=== PATIENT | female | born 1945 | race Caucasian/White ===

== ENCOUNTER 2017-10-22 16:49 | Observation (INO) | payer OTHER, MEDICARE ==
[~2017-10-22] VITALS: Ht 160 cm; Wt 61.2 kg
--- NOTE | 2017-10-22 17:20 | CT SCAN REPORT ---
EXAMINATION: CT HEAD WITHOUT CONTRAST CLINICAL INFORMATION: Left-sided facial droop. COMPARISON: None TECHNIQUE: Contiguous axial imaging was performed from the skull base to vertex without intravenous administration of contrast. FINDINGS: There is no intracranial hemorrhage, hydrocephalus, extra-axial surface collection, midline shift, or other herniation pattern. Landaverde to white matter differentiation is diffusely maintained without evidence of an evolved acute territorial infarct. The basilar cisterns are preserved. No significant soft tissue abnormality. No acute osseous abnormality. The paranasal sinuses and the mastoid air cells are well-aerated. IMPRESSION: No acute intracranial abnormality. Stroke protocol head CT results were discussed with Dr. Ferreira at 5:14 PM on 10/22/2017.
--- NOTE | 2017-10-22 17:27 | ED NEURO DEFICIT/STROKE ---
History of Present Illness General Chief Complaint: Neuro Symptoms/ Deficit Stated Complaint: ? NEURO ISSUES Source: patient Exam Limitations: no limitations Vital Signs & Intake/Output Vital Signs & Intake/Output Vital Signs Date Time Temp Pulse Resp B/P B/P Pulse O2 O2 Flow FiO2 Mean Ox Delivery Rate 10/22 2211 97.6 67 16 138/63 94 Room Air 10/22 2106 98.4 74 18 155/73 97 Room Air Room Air 10/22 1944 98.6 70 18 175/78 96 Room Air Room Air 10/22 1919 70 18 203/81 96 Room Air Room Air 10/22 1809 98.5 75 18 178/76 97 Room Air Room Air 10/22 1653 98.4 76 18 174/75 98 Room Air Allergies Coded Allergies: hydrocodone (From VICODIN) (Mild, ITCHING 10/22/17) azithromycin (RESP. DISTRESS 10/22/17) guaifenesin (RESP. DISTRESS 10/22/17) Reconcile Medications Calcium Carbonate/Vitamin D3 (Caltrate 600 + D Tablet) 600 MG-800 TABLET 1 TAB PO DAILY VITAMIN SUPPORT (Reported) Fish Oil/Borage/Flax/Om3,6,9#1 ([place]astings 3-6-9 1,200 MG Softgel) 1,200 MG CAPSULE 1 CAP PO DAILY VITAMIN SUPPORT (Reported) Fluticasone-Salmeterol (Advair 100-50 Diskus) 100 MCG-50 MCG/DOSE BLST.W.DEV 1 PUF INH BID ASTHMA (Reported) Hydrochlorothiazide 25 MG TABLET 1 TAB PO DAILY HIGH BLOOD PRESSURE (Reported ) Levothyroxine Sodium 50 MCG TABLET 1 TAB PO DAILY THYROID HEALTH (Reported) Losartan Potassium (Cozaar) 50 MG TABLET 1 TAB PO BID HIGH BLOOD PRESSURE ( Reported) Multiple Vitamin (Multivitamins) 1 EACH TABLET 1 TAB PO DAILY VITAMIN SUPPORT (Reported) Pravastatin Sodium (Pravachol) 40 MG TABLET 1 TAB PO DAILY HIGH CHOLESTROL ( Reported) Triage Note: 72 YO FEMALE TO TRIAGE FOR EVAL OF APPROX 45 MIN 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 PT STATES T THE TIME SHE HAD NUMBESS TO 2 FINGERS ON THE L HAND. PT ARRIVES TO TRIAGE A&O X3. ALL S/S HAVE RESOLVED AT THIS TIME. NEUROS INTACT. HECTOR FLANNERY AWARE AND PA IN FOR EVAL. PT RIGHT TO CT SCAN. Triage Nurses Notes Reviewed? yes Onset: Abrupt Duration: hour(s): (1), better, gone now, resolved prior to arrival Timing: single episode today Severity: moderate, severe New Weakness: left facial Altered Sensations: LUE, left facial Vision Problem? No Glaucoma? No Baseline: alert, oriented x 3, walks w/o assistance Associated Symptoms: numbness in legs/feet, slurred speech LMP (ages 10-50): post menopausal, unknown : No Patient currently breastfeeds: No HPI: 72 -year-old female with a history of hypertension and lipidemia as well as breast cancer presents for evaluation of possible TIA. Patient reports approximately one hour ago at the time of evaluation she developed acute onset of a left-sided facial droop and left-sided facial numbness and numbness in her left second and third digit and slurred speech. She was feeling fine before this. As witnessed by a friend. Symptoms lasted for approximately 5 minutes then resolved completely. She had no weakness of her extremities no changes in her vision no chest pain shortness of breath dizziness lightheadedness or headache. She's never had this before. She currently is feeling completely fine. She has no symptoms. (Jan Schneider) Past History Travel History Traveled to [place] past 21 day No Medical History Any Pertinent Medical History? 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 No (Jan Schneider) Review of Systems Review of Systems Constitutional: Reports: no symptoms. EENTM: Reports: no symptoms. Respiratory: Reports: no symptoms. Cardiovascular: Reports: no symptoms. GI: Reports: no symptoms. Genitourinary: Reports: no symptoms. Musculoskeletal: Reports: no symptoms. Skin: Reports: no symptoms. Neurological/Psychological: Reports: see HPI (slurred speech), numbness, other (facial droop). Hematologic/Endocrine: Reports: no symptoms. Immunologic/Allergic: Reports: no symptoms. All Other Systems: Reviewed and Negative (Jan Schneider) Physical Exam Physical Exam General Appearance: well developed/nourished, no apparent distress, alert, awake Head: atraumatic, normal appearance Eyes: Bilateral: normal appearance, PERRL, EOMI. Ears, Nose, Throat: normal ENT inspection, moist mucous membrane, hearing grossly normal Neck: normal inspection, supple, full range of motion Respiratory: normal breath sounds, chest non-tender, no respiratory distress, lungs clear Cardiovascular: regular rate/rhythm, normal peripheral pulses Peripheral Pulses: 2+ radial (R), 2+ radial (L) Gastrointestinal: soft, non-tender Back: normal inspection, normal range of motion Extremities: normal range of motion Psychiatric: awake, alert, oriented x 3 Cranial Nerves: normal hearing, normal speech, PERRL, cranial nerves II through XII grossly intact. No facial sensory deficits no facial droop. No slurred speech cerebellar testing intact Coordination/Gait: normal finger to nose, normal gait Motor/Sensory: no motor/sensory deficits Skin: intact, normal color, warm/dry Core Measures CVA/TIA Diagnosis: No NIH Stroke Scale NIH Stroke Scale Response Value Level of Consciousness alert 0 LOC Questions answers both correctly 0 LOC Commands obeys both correctly 0 Best Gaze normal 0 Visual Carrera no visual loss 0 Facial Paresis normal 0 Motor Arm - Left no drift 0 Motor Arm - Right no drift 0 Motor Leg - Left no drift 0 Motor Leg - Right no drift 0 Limb Ataxia no ataxia 0 Sensory normal 0 Best Language no aphasia 0 Dysarthria normal articulation 0 Extinction and Inattention no neglect 0 Total 0 Date Last Known Well: 10/22/17 Time Last Known Well: 1630 Symptom Start Date: 10/22/17 Swallow Evaluation Pass Swallow eval date 10/22/17 Swallow eval time 2141 Sepsis Present: No Sepsis Focused Exam Completed? No (Girish SERNA,Jan) Progress Differential Diagnosis: Aponte's Palsy, electrolyte imbalance, intracranial Hem., intracranial mass/tumor, migraine IBARRA, seizure disorder, stroke, subarachnoid Hem., vertebrobasilar insuff. Plan of Care: Orders Procedure Date/time Status Regular Diet 10/23 B Active OXYGEN SETUP (GEN) 10/22 2216 Active Saline Lock 10/[address] in observation 10/22 2216 Active Vital Signs 10/22 2216 Active Activity/Ambulation 10/22 2216 Active Code Status 10/22 2216 Active Patient Data 10/22 2126 Active TROPONIN LEVEL 10/22 1652 Complete PARTIAL THROMBOPLASTIN TIME 10/22 1652 Complete PROTHROMBIN TIME 10/22 1652 Complete COMPREHENSIVE METABOLIC PANEL 10/22 1652 Complete CBC WITHOUT DIFFERENTIAL 10/22 1652 Complete EKG 10/22 1652 Active Laboratory Tests 10/22/17 1741: Anion Gap 9, Estimated GFR > 60, BUN/Creatinine Ratio 18.6, Glucose 93, Calcium 9.9, Total Bilirubin 0.6, AST 25, ALT 35, Alkaline Phosphatase 65, Troponin I < 0.01, Total Protein 6.8, Albumin 4.2, Globulin 2.6, Albumin/Globulin Ratio 1.6, PT 9.7, INR 0.89 L, APTT 28, CBC w Diff NO MAN DIFF REQ, RBC 4.45, MCV 90.7, MCH 30.7, MCHC 33.8, RDW 14.6 H, MPV 7.8, Gran % 54.9, Lymphocytes % 32.1, Monocytes % 10.4 H, Eosinophils % 2.1, Basophils % 0.5, Absolute Granulocytes 3.8, Absolute Lymphocytes 2.2, Absolute Monocytes 0.7 H, Absolute Eosinophils 0.1, Absolute Basophils 0 Patient seen and evaluated. She is here with acute onset of a left-sided facial droop and left facial numbness as well as slurred speech this lasted for less than 5 minutes and then currently resolved. It occurred just before presentation. Patient currently is neurologically intact she feels "fine vitals are stable. Dry CT scan was done immediately and is negative for acute bleed. Labs EKG ordered. Carotid ultrasounds ordered. Patient is medicated with aspirin. She has an intact gag refleX. She is tolerating fluids by mouth. Patient reported another acute onset of a left-sided facial droop. This lasted for less than a minute it was not observed by me. It completely resolved. She remains neurologically intact. CTA will be obtained. Ultrasound did not show any severe stenosis CTA is negative. Patient remains neurologically intact and asymptomatic is been no additional episodes. Patient be admitted to the hospital for further evaluation and treatment of possible TIA. She will require serial labs, telemetry, cardiology, echocardiogram, MRI, neurology, medication adjustment monitoring of vital signs neuro checks. Diagnostic Imaging: Viewed by Me: CT Scan, Ultrasound. Discussed w/RAD: CT Scan, Ultrasound. Radiology Impression: PATIENT: DEBBIE MARSH PRESENT AGE: 72 PATIENT ACCOUNT NO: [id number] : 47 LOCATION: [facility] ORDERING PHYSICIAN: Maximino SERNA SERVICE DATE: 10/22/17 EXAM TYPE: CAT - CT HEAD WO IV CONTRAST EXAMINATION: CT HEAD WITHOUT CONTRAST CLINICAL INFORMATION: Left-sided facial droop. COMPARISON: None TECHNIQUE: Contiguous axial imaging was performed from the skull base to vertex without intravenous administration of contrast. FINDINGS: There is no intracranial hemorrhage, hydrocephalus, extra-axial surface collection, midline shift, or other herniation pattern. Landaverde to white matter differentiation is diffusely maintained without evidence of an evolved acute territorial infarct. The basilar cisterns are preserved. No significant soft tissue abnormality. No acute osseous abnormality. The paranasal sinuses and the mastoid air cells are well-aerated. IMPRESSION: No acute intracranial abnormality. Stroke protocol head CT results were discussed with Dr. Ferreira at 5:14 PM on 10/22/2017. DICTATED BY: Gopi Fontanez MD DATE/TIME DICTATED:10/22/171711 BEFORE SCHOOL:[employer] DATE/ TIME TRANSCRIBED:10/22/171711 CONFIDENTIAL, DO NOT COPY WITHOUT APPROPRIATE AUTHORIZATION. <Electronically signed in Other Vendor System> SIGNED BY: Gopi Fontanez MD 10/22/170, PATIENT: DEBBIE MARSH PRESENT AGE: 72 PATIENT ACCOUNT NO: [id number] : 47 LOCATION: [facility] ORDERING PHYSICIAN: Jan SERNA SERVICE DATE: 10/22/17 EXAM TYPE: US - [id number] DOPPLER EXAMINATION: US DUPLEX CAROTID AND VERTEBRAL CLINICAL INFORMATION: TIA. COMPARISON: Head CT performed earlier the same day. TECHNIQUE: Real-time ultrasound and Doppler techniques (integrating B-mode 2D vascular images, Doppler spectral analysis and color flow Doppler imaging) were utilized to interrogate the extracranial carotid and vertebral arteries bilaterally. The degree of stenosis determined by criteria similar to NASCET. FINDINGS: Right common carotid artery peak systolic velocity is 70 cm/s with maximal end-diastolic velocity of 13 cm/s. Right internal carotid artery peak systolic velocity ranges between 73 and 104 cm/s with maximal end-diastolic velocity of 38 cm/s. There is antegrade flow within the right vertebral artery. There is calcific atherosclerotic plaque at the right carotid bifurcation. Left common carotid artery peak systolic velocity is 112 cm/s with maximal end- diastolic velocity of 27 cm/s. Left internal carotid artery peak systolic velocity ranges between 53 and 97 cm/s with maximal end-diastolic velocity of 37 cm/s. There is antegrade flow within the left vertebral artery. No atherosclerotic plaque at the left carotid bifurcation. IMPRESSION: Mild atherosclerotic disease at the right carotid bifurcation with no significant (< 50%) stenosis by sonographic criteria. The left carotid bifurcation is unremarkable. DICTATED BY: Gopi Fontanez MD DATE/TIME DICTATED:10/22/172018 BEFORE SCHOOL:[employer] DATE/TIME TRANSCRIBED:10/22/172018 CONFIDENTIAL, DO NOT COPY WITHOUT APPROPRIATE AUTHORIZATION., PATIENT: DEBBIE MARSH PRESENT AGE: 72 PATIENT ACCOUNT NO: [id number] : 47 LOCATION: [facility] ORDERING PHYSICIAN: Jan SERNA SERVICE DATE: 10/22/17 EXAM TYPE: CAT - CT HEAD ANGIOGRAM; CT NECK ANGIOGRAM CT ANGIOGRAM NECK WITH CONTRAST CT ANGIOGRAM BRAIN WITH CONTRAST CLINICAL INFORMATION: Left-sided facial droop and slurred speech that is now resolved. COMPARISON: Head CT performed earlier the same day. TECHNIQUE: Test bolus sequences followed by intravenous administration 95 mL of Optiray 350. Helical imaging was performed in the axial plane from the thoracic inlet to the skull vertex. Delayed postcontrast imaging of the head was also performed. The data was processed at the principal technologist workstation for generation of MIP sequences. Angled MIPs and volume rendered reformatted images were also generated at an offline 3D workstation. Stenoses are assessed in accordance with NASCET criteria unless otherwise indicated. FINDINGS: BRAIN: There is no intracranial hemorrhage, hydrocephalus, extra-axial surface collection, midline shift, or other herniation pattern. Landaverde to white matter differentiation is diffusely maintained without evidence of an evolved acute territorial infarct. The basilar cisterns are preserved. No significant soft tissue abnormality. No acute osseous abnormality. The paranasal sinuses and the mastoid air cells are well-aerated. CERVICAL SOFT TISSUES AND LUNG APICES: Unremarkable. NECK CTA: There is a classic 3 vessel configuration of the aortic arch. Proximal arch vessels are non -stenotic. The vertebral arteries are codominant. No significant ostial stenosis is visualized on either side. Both vertebral arteries are widely patent throughout their extracranial cervical course. Both common and internal carotid arteries are widely patent. There is mild beaded irregularity of the mid left cervical internal carotid artery segment suggesting underlying fibromuscular dysplasia. BRAIN CTA: There is normal opacification of major intracranial arteries. No focal flow-limiting stenosis nor discrete proximal large artery occlusion. A 1 mm vascular excrescence projecting inferiorly from the communicating segment of the left internal carotid artery on image 393 of series 2 may reflect a small infundibulum or aneurysm. Timing of the contrast bolus allows assessment of the major dural venous sinuses, which all opacify normally. IMPRESSION: - No acute arterial occlusions and no significant arterial stenoses within the head or neck. There is mild beaded irregularity of the mid left cervical internal carotid artery segment suggesting underlying fibromuscular dysplasia. - A 1 mm vascular excrescence projecting inferiorly from the communicating segment of the left internal carotid artery on image 393 of series 2 may reflect a small infundibulum or aneurysm. Findings discussed with Dr. Stout at 9:09 PM on 10/22/2017. DICTATED BY: Gopi Fontanez MD DATE/TIME DICTATED:10/22/172054 BEFORE SCHOOL:[employer] DATE/TIME TRANSCRIBED:2054 CONFIDENTIAL, DO NOT COPY WITHOUT APPROPRIATE AUTHORIZATION. < Electronically signed in Other Vendor System> SIGNED BY: Gopi Fontanez MD 10/22/172116 Initial ED EKG: normal sinus rhythm, LVH, LVH with associated repolarization abnormality Prior EKG: unchanged (Jan Schneider) Departure Departure Disposition: STILL A PATIENT Condition: Stable Clinical Impression Primary Impression: TIA (transient ischemic attack) Qualifiers: Transient cerebral ischemia type: other Qualified Code: G45.8 - Other transient cerebral ischemic attacks and related syndromes Referrals: Home Cohn MD (PCP/Family) Departure Forms: Customer Survey General Discharge Information Observation Note Spoke With: Renato Ross MD Physician Advisor Notified: HARDEEP PRADHAN,EFRAIN [address] Patient In: Non-ED OBS Care Area Rationale for Observation: My rational for observation is as follows serial labs, telemetry, cardiology, echocardiogram, MRI, neurology, medication adjustment monitoring of vital signs neuro checks.]. (Jan Schneider) PA/FLIGHT LINE MECHANIC Co-Sign Statement Statement: ED Attending supervision documentation- x I saw and evaluated the patient. I have also reviewed all the pertinent lab results and diagnostic results. I agree with the findings and the plan of care as documented in the PA's/FLIGHT LINE MECHANIC's documentation. Episodic facial droop with slurred speech. CTA negative [] I have reviewed the ED Record and agree with the PA's/FLIGHT LINE MECHANIC's documentation. [] Additions or exceptions (if any) to the PAs/FLIGHT LINE MECHANIC's note and plan are summarized below: [] (Carri PRADHAN,Fransisco)
[2017-10-22 17:50] LABS: ABSOLUTE BASOPHIL COUNT 0 /CUMM (0.0-0.2); ABSOLUTE EOSINOPHIL COUNT 0.1 /CUMM (0.0-0.7); ABSOLUTE GRANULOCYTE CT 3.8 /CUMM (1.4-6.5); ABSOLUTE LYMPH COUNT 2.2 /CUMM (1.2-3.4); ABSOLUTE MONOCYTE COUNT 0.7 /CUMM (0.10-0.60); BASOPHIL % 0.5 % (0.0-2.0); EOSINOPHIL % 2.1 % (0-5); GRANULOCYTE % 54.9 % (42.2-75.2); HEMATOCRIT 40.3 % (37-47); MEAN CORPUSCULAR HGB 30.7 PG (27.0-31.0); MEAN CORPUSCULAR HGB CONC 33.8 G/DL (33.0-37.0); MEAN CORPUSCULAR VOLUME 90.7 FL (81.0-99.0); MEAN PLATELET VOLUME 7.8 FL (7.4-10.4); PLATELET COUNT 261 /CUMM (130-400); RBC DISTRIBUTION WIDTH 14.6 % (11.5-14.5); RED BLOOD CELL CT 4.45 /CUMM (4.20-5.40); WHITE BLOOD CELL COUNT 6.9 /CUMM (4.8-10.8)
[2017-10-22 17:59] LABS: PT 9.7 SEC (9.4-12.5); PTT 28 SEC (25-37)
[2017-10-22] MEDS ORDERED: LEVOTHYROXINE50 MCG PO (19:40)
[2017-10-22] MEDS ORDERED: COZAAR50 M1 PO (19:40)
[2017-10-22] MEDS ORDERED: HYDROCHLOROTHIA25 M1 PO (19:41)
[2017-10-22] MEDS ORDERED: PRAVACHOL40 M1 PO (19:42)
[2017-10-22] MEDS ORDERED: ADVAIR 100-501 EACH INH (19:42)
[2017-10-22] MEDS ORDERED: CALTRATE 600 +1 EACH PO (19:43)
[2017-10-22] MEDS ORDERED: OMEGA 3-6-9 11200 MG PO (19:43)
[2017-10-22] MEDS ORDERED: MULTIVITAMINS1 EAC9 PO (19:44)
--- NOTE | 2017-10-22 20:25 | ULTRASOUND REPORT ---
EXAMINATION: US DUPLEX CAROTID AND VERTEBRAL CLINICAL INFORMATION: TIA. COMPARISON: Head CT performed earlier the same day. TECHNIQUE: Real-time ultrasound and Doppler techniques (integrating B-mode 2D vascular images, Doppler spectral analysis and color flow Doppler imaging) were utilized to interrogate the extracranial carotid and vertebral arteries bilaterally. The degree of stenosis determined by criteria similar to NASCET. FINDINGS: Right common carotid artery peak systolic velocity is 70 cm/s with maximal end-diastolic velocity of 13 cm/s. Right internal carotid artery peak systolic velocity ranges between 73 and 104 cm/s with maximal end-diastolic velocity of 38 cm/s. There is antegrade flow within the right vertebral artery. There is calcific atherosclerotic plaque at the right carotid bifurcation. Left common carotid artery peak systolic velocity is 112 cm/s with maximal end-diastolic velocity of 27 cm/s. Left internal carotid artery peak systolic velocity ranges between 53 and 97 cm/s with maximal end-diastolic velocity of 37 cm/s. There is antegrade flow within the left vertebral artery. No atherosclerotic plaque at the left carotid bifurcation. IMPRESSION: Mild atherosclerotic disease at the right carotid bifurcation with no significant (<50%) stenosis by sonographic criteria. The left carotid bifurcation is unremarkable.
--- NOTE | 2017-10-22 21:17 | CT SCAN REPORT ---
CT ANGIOGRAM NECK WITH CONTRAST CT ANGIOGRAM BRAIN WITH CONTRAST CLINICAL INFORMATION: Left-sided facial droop and slurred speech that is now resolved. COMPARISON: Head CT performed earlier the same day. TECHNIQUE: Test bolus sequences followed by intravenous administration 95 mL of Optiray 350. Helical imaging was performed in the axial plane from the thoracic inlet to the skull vertex. Delayed postcontrast imaging of the head was also performed. The data was processed at the ultrasound technologist workstation for generation of MIP sequences. Angled MIPs and volume rendered reformatted images were also generated at an offline 3D workstation. Stenoses are assessed in accordance with NASCET criteria unless otherwise indicated. FINDINGS: BRAIN: There is no intracranial hemorrhage, hydrocephalus, extra-axial surface collection, midline shift, or other herniation pattern. Landaverde to white matter differentiation is diffusely maintained without evidence of an evolved acute territorial infarct. The basilar cisterns are preserved. No significant soft tissue abnormality. No acute osseous abnormality. The paranasal sinuses and the mastoid air cells are well-aerated. CERVICAL SOFT TISSUES AND LUNG APICES: Unremarkable. NECK CTA: There is a classic 3 vessel configuration of the aortic arch. Proximal arch vessels are non-stenotic. The vertebral arteries are codominant. No significant ostial stenosis is visualized on either side. Both vertebral arteries are widely patent throughout their extracranial cervical course. Both common and internal carotid arteries are widely patent. There is mild beaded irregularity of the mid left cervical internal carotid artery segment suggesting underlying fibromuscular dysplasia. BRAIN CTA: There is normal opacification of major intracranial arteries. No focal flow-limiting stenosis nor discrete proximal large artery occlusion. A 1 mm vascular excrescence projecting inferiorly from the communicating segment of the left internal carotid artery on image 393 of series 2 may reflect a small infundibulum or aneurysm. Timing of the contrast bolus allows assessment of the major dural venous sinuses, which all opacify normally. IMPRESSION: - No acute arterial occlusions and no significant arterial stenoses within the head or neck. There is mild beaded irregularity of the mid left cervical internal carotid artery segment suggesting underlying fibromuscular dysplasia. - A 1 mm vascular excrescence projecting inferiorly from the communicating segment of the left internal carotid artery on image 393 of series 2 may reflect a small infundibulum or aneurysm. Findings discussed with Dr. Stout at 9:09 PM on 10/22/2017.
--- NOTE | 2017-10-22 21:42 | History & Physical ---
MichealHooper 10/22/172137: General Information and HPI MD Statement: I have seen and personally examined DEBBIE MARSH and documented this H&P. The patient is a 72 year old F who presented with a patient stated chief complaint of slurry speech and numbness of left hand []. Source of Information: patient, EMS Exam Limitations: no limitations History of Present Illness: 72 YO F non smoker with PMH of HTN, HLD, asthma, hypothyroidism and breast cancer (Left breast lumpectomy s/p radiation in 2004) was brought to ED with chief complain of slurring of speech and right hand two fingers numbness this evening. Patient reported that she was in her usual state of health since this afternoon. According to patient she went to see her primary care physician for six-month wellness visit and she did fine there was no complaint at that point. She went to do shopping and then went home and doing her routine homework while talking to the neighbors she noticed sudden numbness in left fingers. According to patient she was thinking that could be due to nerve entrapment and it can go away by itself. Later on when she was talking to her neighbors she also noticed numbness in left lower face and her neighbor noticed slurring of speech that remained for 5 minutes. Her neighbor brought her to ED for evaluation, but she was in ED she had left facial droop remained for 1min that was noticed by nursing staff and it resolved by itself. Patient denied chest pain, palpitation, nausea, vomiting, chills, fever, abdominal pain, diarrhea, constipation, trauma, rash, headache, numbness, tingling or weakness during examination and dysuria. Patient reported that she has dental procedure on the right side and sometimes she feels funny sensation on the right side of the face. According the patient she has positive family history of neurological problems. Her mother had TIA, father due to cerebral hemorrhage and her daughter 3 years back due to ruptured cerebral aneurysm. Patient is BRCA-2 positive. ED course: Vitals: Temperature 98.4, pulse 76, respiratory rate 18, blood pressure 170/75, oxygen saturation 98% on room air Labs: WBC count 6.9, hemoglobin 13.6, hematocrit 40.3,. Count 261, sodium 140, potassium 3.3, BUN 13, creatinine 0.7, troponin less than 0.01, calcium 9.9, BUN /creatinine ratio 18.6, anion gap 9, glucose 93, AST 25, ALT 35, INR 0.89 Allergies/Medications Allergies: Coded Allergies: hydrocodone (From VICODIN) (Mild, ITCHING 10/22/17) azithromycin (RESP. DISTRESS 10/22/17) guaifenesin (RESP. DISTRESS 10/22/17) Home Med list Aspirin (Aspirin*) 81 MG TAB.CHEW 81 MG PO DAILY blood thinner Atorvastatin Calcium 80 MG TABLET 1 TAB PO DAILY high cholesterol Calcium Carbonate/Vitamin D3 (Caltrate 600 + D Tablet) 600 MG-800 TABLET 1 TAB PO DAILY VITAMIN SUPPORT (Reported) Fish Oil/Borage/Flax/Om3,6,9#1 (Pelican 3-6-9 1,200 MG Softgel) 1,200 MG CAPSULE 1 CAP PO DAILY VITAMIN SUPPORT (Reported) Fluticasone-Salmeterol (Advair 100-50 Diskus) 100 MCG-50 MCG/DOSE BLST.W.DEV 1 PUF INH BID ASTHMA (Reported) Hydrochlorothiazide 25 MG TABLET 1 TAB PO DAILY HIGH BLOOD PRESSURE (Reported ) Levothyroxine Sodium 50 MCG TABLET 1 TAB PO DAILY THYROID HEALTH (Reported) Losartan Potassium (Cozaar) 50 MG TABLET 1 TAB PO BID HIGH BLOOD PRESSURE ( Reported) Multiple Vitamin (Multivitamins) 1 EACH TABLET 1 TAB PO DAILY VITAMIN SUPPORT (Reported) Past History Travel History Traveled to [place] past 21 day No Medical History Neurological: NONE EENT: NONE Cardiovascular: hypertension, hyperlipidemia Respiratory: NONE Gastrointestinal: NONE Hepatic: NONE Renal: NONE Musculoskeletal: NONE Psychiatric: NONE Endocrine: NONE Blood Disorders: NONE Cancer(s): breast cancer 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 EENTM: Reports: no symptoms. Cardiovascular: Denies: chest pain, orthopena, palpitations, syncope. Respiratory: Denies: cough, short of breath, sputum production, wheezing. GI: Denies: abdominal pain, constipation, diarrhea, nausea, vomiting. Genitourinary: Denies: discharge, frequency, nocturia, pain. Musculoskeletal: Reports: no symptoms. Skin: Reports: no symptoms. Neurological/Psychological: Denies: anxiety, headache, numbness, tingling, tremors. Hematologic/Endocrine: Reports: no symptoms. Exam & Diagnostic Data Last 24 Hrs of Vital Signs/I&O Vital Signs Date Time Temp Pulse Resp B/P B/P Pulse O2 O2 Flow FiO2 Mean Ox Delivery Rate 10/22 2211 97.6 67 16 138/63 94 Room Air 10/22 2106 98.4 74 18 155/73 97 Room Air Room Air 10/22 1944 98.6 70 18 175/78 96 Room Air Room Air 10/22 1919 70 18 203/81 96 Room Air Room Air 10/22 1809 98.5 75 18 178/76 97 Room Air Room Air 10/22 1653 98.4 76 18 174/75 98 Room Air Physical Exam General Appearance Alert, Oriented X3, Cooperative, No Acute Distress Skin No Rashes Skin Temp/Moisture Exam: Warm/Dry Sepsis Skin Exam (color): Normal for Ethnicity HEENT Atraumatic, PERRLA, EOMI Neck Supple Cardiovascular Normal S1, Normal S2 Lungs Clear to Auscultation, Normal Air Movement Abdomen Soft, No Tenderness Neurological Normal Speech, Strength at 5/5 X4 Ext, Normal Tone, Sensation Intact, Cranial Nerves 3-12 NL Extremities No Clubbing Assessment/Plan Assessment: 72 YO F non smoker with PMH of HTN, HLD, asthma, hypothyroidism and breast cancer (Left breast lumpectomy s/p radiation in 2004) was brought to ED with chief complain of slurring of speech and right hand two fingers numbness this evening. We will keep her under observation on telemetry floor. TIA: -Possibly patient has TIA, as her symptoms resolved by itself within a few minutes. Considering patient's significant family history of neurological problems we will monitor her on telemetry floor for worsening of her neurological symptoms. -We will start aspirin -We will give patient atorvastatin 40 mg daily -Neuro check every 4 hourly -Neurology consult -MRI if neurology suggested. -Patient has small aneurysm on imaging study and she has positive family history for ruptured aneurysms so we will discuss with neurology for any further imaging study for aneurysm or surveillance in the future. Hypokalemia: -Patient has mild hypokalemia -We will replete potassium and check her potassium level again. History of hypertension and hyperlipidemia: -We will continue her antihypertensive medications -We will give her atorvastatin 40 mg and then we will increase it to 80 mg History of hypothyroidism: -Continue levothyroxine History of asthma: -Continue her inhalers DVT prophylaxis: Mechanical and subcutaneous heparin CODE STATUS: Full code As Ranked By This Provider Problem List: 1. TIA (transient ischemic attack) Qualifiers Transient cerebral ischemia type: other Qualified Code: G45.8 - Other transient cerebral ischemic attacks and related syndromes Core Measures/Misc (01/12) Acute Coronary Syndrome ACS Diagnosis: No Congestive Heart Failure Congestive Heart Failure Diagnosis No Cerebrovascular Accident CVA/TIA Diagnosis: Yes NIH Stroke Scale: Total 0 Date Last Known Well: 10/22/17 VTE (View Protocol) VTE Risk Factors Age>40 No Mechanical VTE Prophylaxis d/t N/A MechProphylax Ordered No VTE Pharm Prophylaxis d/t NA PharmProphylax ordered Sepsis (View protocol) Sepsis Present: No If YES complete Sepsis Event Note If YES complete Sepsis Event Note Shane Kim MD 10/22/17 2343: Core Measures/Misc (01/12) Sepsis (View protocol) If YES complete Sepsis Event Note If YES complete Sepsis Event Note Resident Review Statement Resident Statement: examined this patient, discussed with audit intern, agreed with audit intern, reviewed EMR data (avail) Other Findings: History of Present Illness 72-year-old woman with past medical history of hypertension, hyperlipidemia, breast cancer status post lumpectomy with radiation (no chemo) in 2004, asthma, and hypothyroidism seen for evaluation of facial droop, slurred speech, and hand numbness. Patient reports waking up today in her normal state of health when she went to her PCP for her annual visit. Afterwards she was at the [facility] and she noticed tingling/numbness and some fingers on her left hand that was self- limited. After arriving home she went to her neighbor's house to visit and during the conversation she was noticed to have a left facial droop, and slurred speech lasting approximately 5 minutes. Patient was immediately brought to the [place] ED by the neighbor for evaluation. Upon arrival to the [place] ED her symptoms have all but resolved. However sometime later she developed recurrence of her facial droop lasting approximately 1 minute. Patient was given full-strength aspirin in the ED. Presently she feels well and denies any complaints. Review of systems She otherwise denies any headache, fever, chills, blurred/double vision, lightheadedness/dizziness, chest pain, palpitations, heartburn, shortness breath , cough, nausea, vomiting, diarrhea, numbness, tingling, weakness, urinary complaints. Social History Patient denies a personal history of using tobacco however admits to extensive secondhand exposure to smoke exposure. She denies a history of alcohol use. 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 She is independent in all ADLs/IADLs and is compliant with her medications. Family history Patient reports 3 first-degree family members whom have from cerebrovascular events. Her daughter reportedly 3 years ago from an intracerebral aneurysm rupture. Objective Vitals-Temp 98.4, 98.6, HR 70-76, RR 18, SBP 155-203, SPO2 is 96-98% on room air Physical Exam -General: Well developed, well nourished elderly woman in no acute distress -HEENT: NCAT, PERRLA, EOMI, anicteric sclera, moist mucous membranes -Neck: Supple, no JVD/HJR, no bruits, trachea midline, no accessory respiratory muscle use -Cardio: Normal S1/S2 without murmurs, gallops, or rub; regular rate and rhythm -Pulmonary: Clear to auscultation bilaterally -Abdomen: Soft, non-tender, non-distended, bowel sounds intact -Neuro: Awake and alert, oriented to person/place/time, speech/coordination/ sensation intact, CN II-XII intact, passed bedside swallow evaluation; gait not assessed -Extremities: Normal pulses, no edema Labs / Imaging / Studies -CBC: WBC 6.9, hemoglobin 13.6, hematocrit 40.3, platelet 261 -BMP: Sodium 140, potassium 3.3, chloride 100, CO2 31, BUN 13, creatinine 0.7, anion gap 9, glucose 93 -LFT: Within normal limit -Misc: Troponin I <0.01, INR 0.89 -EKG: Normal sinus rhythm with left axis deviation -Carotid Doppler: * Mild atherosclerotic disease at the right carotid bifurcation with no significant (<50%) stenosis by sonographic criteria. The left carotid bifurcation is unremarkable. -CT head without IV contrast: No acute intracranial abnormal -CTA head/neck: * No acute arterial occlusions and no significant arterial stenoses within the head or neck. There is mild beaded irregularity of the mid left cervical internal carotid artery segment suggesting underlying fibromuscular dysplasia. * A 1 mm vascular excrescence projecting inferiorly from the communicating segment of the left internal carotid artery on image 393 of series 2 may reflect a small infundibulum or aneurysm. Assessment 72-year-old woman with multiple medical problems significant for hypertension, hyperlipidemia, and multiple first-degree family members with histories of cerebrovascular events seen for evaluation of transient slurred speech, facial droop, and hand numbness. Presently patient feels well and has no complaints and denies any persistent neurologic deficits. Vital signs are significant for an elevated systolic blood pressure ranging 155-203. Physical exam reveals a pleasant elderly woman with a completely nonfocal neurologic examination and an otherwise normal cardiopulmonary and abdominal examination. Labs including CBC, serum chemistry, hepatic function panel are significant only for potassium 3.3; troponin I is negative and INR is within normal limits. CT head without contrast is unremarkable. CTA head/neck revealed a 1 mm vascular excrescence from the communicating segment of the left internal carotid artery possibly suggestive of a small infundibulum or aneurysm. Carotid Doppler demonstrated mild atheromatous disease of the bifurcation of the right internal carotid artery without any significant stenosis. EKG was normal sinus rhythm. Clinically patient appears to have had a transient ischemic attack without any persistent neurologic deficits. Patient has multiple risk factors for atherosclerotic disease including hypertension and hyperlipidemia and secondhand smoke exposure. She also has extensive family history of cerebrovascular events. Patient is to be placed under observation on the floor floor for telemetry monitoring, serial neuro checks, aspirin/statin therapy, and neurology evaluation. Problem list -Slurred speech with facial droop and hand numbness, probable transient ischemic attack -Possible 1 mm aneurysm of the communicating segment of the left internal carotid artery -Hypokalemia -Hypertension -Hyperlipidemia -History of breast cancer status post nephrectomy/radiation, BRCA positive -Asthma -Hypothyroidism Plan -Placed under observation on telemetry floor -Telemetry monitoring -Neurochecks -Aspirin 81 mg p.o. daily -Atorvastatin 40 mg p.o. daily -Continue home meds: Calcium carbonate, fish oil, Advair, HCTZ, levothyroxine, losartan, multivitamin -Consult with neurology for TIA evaluation -Consider consultation with neurosurgery for aneurysm evaluation if deemed appropriate by -Consider obtaining MRI -Transthoracic echocardiogram -Pain control with acetaminophen -Regular diet -DVT prophylaxis with subcutaneous heparin -Full Renato Ross 10/23/17 0454: Core Measures/Misc (01/12) Sepsis (View protocol) If YES complete Sepsis Event Note If YES complete Sepsis Event Note Attending MD Review Statement Attending Statement Attending MD Statement: examined this patient, discuss w/resident/PA/DIRECTOR COUNCIL ON AGING, agreed w/resident/PA/DIRECTOR COUNCIL ON AGING, reviewed EMR data (avail), reviewed images, amended to note Attending Assessment/Plan: CC: Garbled speech PMH: HTN, HLD, asthma, hypothyroidism, Left breast cancer s/p lumpectomy and radiation, BRCA2 positive, s/p BSO Patient came to ER for sudden onset of garbled speech. She was at her baseline and was doing her routine activities when she noticed that tip of her left fingers were numb, which eventually improved but then she noticed mild numbness over left side of her chin and her neighbor noticed that her speech was garbled when she was talking to her. She was immediately rushed to ER, her neighbor drove her. By the time patient was in ER on her symptoms were resolved, symptoms may have lasted 5 minutes. While she was being investigated in ER symptoms again recurred and lasted for 1 minute in ER. Currently she does not have any weakness , numbness, word finding difficulty, chest pain. Complete ROS unremarkable. Vitals: Temperature 98.4, pulse 76, RR 18, blood pressure 174/75, saturating 98% on room air On exam: A O 3, cooperative, no acute distress, neck supple, JVD normal, no lymphadenopathy, mucosa moist, no focal neurological deficit, no dependent edema , no obvious skin rashes or inflammation CVS: S1-S2, RRR. RS: Clear to auscultate bilaterally. Abdomen: Soft, NT, ND, bowel sounds present. CT head without IV contrast: No acute intracranial abnormality. Carotid Doppler: Mild atherosclerotic disease at the right carotid bifurcation with no significant (<50%) stenosis by sonographic criteria. The left carotid bifurcation is unremarkable. CTA head and neck: - No acute arterial occlusions and no significant arterial stenoses within the head or neck. There is mild beaded irregularity of the mid left cervical internal carotid artery segment suggesting underlying fibromuscular dysplasia. - A 1 mm vascular excrescence projecting inferiorly from the communicating segment of the left internal carotid artery on image 393 of series 2 may reflect a small infundibulum or aneurysm. Assessment and plan 72-year-old female with past medical history as mentioned above presented in ER for transient numbness and garbled speech that occurred at home and then again in ER. Complete neurological examination is currently normal, there is suspicion of TIA. Given recurrence of her symptoms CTA head and neck was obtained to rule out any embolus or mobile plaque, which was ruled out. Patient would benefit from inpatient workup for TIA. Additionally she is found to have 1 mm vascular abnormality, suspicion for aneurysm. This does not correlate with her symptoms but her daughter of aneurysmal bleed, her father had intracranial hemorrhage this patient would benefit from evaluation of this lesion. We will obtain neurology opinion in this regard. + TIA + Hx of HTN, HLD, asthma, hypothyroidism, Left breast cancer s/p lumpectomy and radiation, BRCA2 positive, s/p BSO - Place in observation on telemetry - Continuous telemetry monitoring - Serial troponin and EKG - MRI brain if suggested by neurology - 2-D echocardiogram in a.m. - DVT prophylaxis - Obtain lipid profile - Continue aspirin and atorvastatin 40 mg - Neurologic consult - Serial neuro checks - Adequate pain control - Hold antihypertensives for now, resume from a.m. 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
[2017-10-22 23:39] VITALS: BP 158/78
[2017-10-23 07:01] VITALS: BP 122/86
--- NOTE | 2017-10-23 07:21 | PN-Observation ---
Tan PRADHAN,Lilli 10/23/17 0721: Observation Note Observation Note _ I have personally examined DEBBIE MARSH. her disposition is uncertain at this time. Before a determination can be made, she requires continued observation for the following reasons [TIA]. Assessment/Plan Medical Assessment: 72 YO F non smoker with PMH of HTN, HLD, asthma, hypothyroidism and breast cancer (Left breast lumpectomy s/p radiation in 2004) was brought to ED with chief complain of slurring of speech and right hand two fingers numbness this evening. We will keep her under observation on telemetry floor. TIA: -Possibly patient has TIA, as her symptoms resolved by itself within a few minutes. Considering patient's significant family history of neurological problems we will monitor her on telemetry floor for worsening of her neurological symptoms. -Continue aspirin -We will give patient atorvastatin 40 mg daily -Neuro check every 4 hourly -Neurology consult -MRI if neurology suggested. -Patient has small aneurysm on imaging study and she has positive family history for ruptured aneurysms so we will discuss with neurology for any further imaging study for aneurysm or surveillance in the future. Hypokalemia: -Patient has mild hypokalemia -We will replete potassium and check her potassium level again. History of hypertension and hyperlipidemia: -We will continue her antihypertensive medications -We will give her atorvastatin 40 mg and then we will increase it to 80 mg History of hypothyroidism: -Continue levothyroxine History of asthma: -Continue her inhalers DVT prophylaxis: Mechanical and subcutaneous heparin CODE STATUS: Full code Problem List: 1. TIA (transient ischemic attack) Qualifiers Transient cerebral ischemia type: other Qualified Code: G45.8 - Other transient cerebral ischemic attacks and related syndromes Subjective Follow-up For: TIA Tele-Events Since Last Visit: No overnight events Subjective: Patient was seen and examined, she denies any focal neurological symptoms, in addition she also denies any chest pain or palpitation Review of Systems Constitutional: Reports: see HPI. Objective Last 24 Hrs of Vital Signs/I&O Vital Signs Date Time Temp Pulse Resp B/P B/P Pulse O2 O2 Flow FiO2 Mean Ox Delivery Rate 10/23 1429 98.3 80 18 122/70 96 Room Air 10/23 1146 83 128/72 10/23 1058 73 164/80 10/23 0800 73 136/78 10/23 0701 98.1 73 18 122/86 97 Room Air 10/22 2339 98.3 62 18 158/78 98 Room Air 10/22 2310 97.3 65 16 132/68 94 Room Air 10/22 2211 97.6 67 16 138/63 94 Room Air 10/22 2106 98.4 74 18 155/73 97 Room Air Room Air 10/22 1944 98.6 70 18 175/78 96 Room Air Room Air 10/22 1919 70 18 203/81 96 Room Air Room Air 10/22 1809 98.5 75 18 178/76 97 Room Air Room Air 10/22 1653 98.4 76 18 174/75 98 Room Air Intake & Output 10/23 1600 10/23 0800 10/23 0000 Intake Total 825 200 Output Total Balance 825 200 Intake, Oral 825 200 Patient 135 lb Weight Weight Reported by Patient Measurement Method Physical Exam General Appearance: Alert, Oriented X3, Cooperative, No Acute Distress HEENT: Atraumatic, PERRLA, EOMI, Mucous Membr. moist/pink Cardiovascular: Normal S1, Normal S2, No Murmurs Lungs: Clear to Auscultation, Normal Air Movement Abdomen: Normal Bowel Sounds, Soft, No Tenderness Neurological: Normal Speech, Strength at 5/5 X4 Ext, Normal Tone, Sensation Intact, Cranial Nerves 3-12 NL, Reflexes 2+ Extremities: No Clubbing, No Cyanosis, No Edema Bobo Colon 10/23/17 1318: Attending Addendum Attending Brief Note Patient seen/examined bedside. No new complaints except bp is midly elevated. She attributes to stress. TIA resolved. Neurology appreicated. Telemetry with no events. Carotid USG with no acute abnormalitis. ECHO f/u. Give extra dose of losartan this am and recheck bp. Anticipate discharge soon if imaging results negative.
[2017-10-23 08:02] LABS: ABSOLUTE BASOPHIL COUNT 0 /CUMM (0.0-0.2); ABSOLUTE EOSINOPHIL COUNT 0.1 /CUMM (0.0-0.7); ABSOLUTE GRANULOCYTE CT 3.3 /CUMM (1.4-6.5); ABSOLUTE LYMPH COUNT 1.8 /CUMM (1.2-3.4); ABSOLUTE MONOCYTE COUNT 0.6 /CUMM (0.10-0.60); BASOPHIL % 0.4 % (0.0-2.0); EOSINOPHIL % 1.8 % (0-5); GRANULOCYTE % 56.6 % (42.2-75.2); HEMATOCRIT 40.3 % (37-47); MEAN CORPUSCULAR HGB 30.8 PG (27.0-31.0); MEAN CORPUSCULAR HGB CONC 33.9 G/DL (33.0-37.0); MEAN CORPUSCULAR VOLUME 90.7 FL (81.0-99.0); MEAN PLATELET VOLUME 8.5 FL (7.4-10.4); PLATELET COUNT 257 /CUMM (130-400); RBC DISTRIBUTION WIDTH 14.2 % (11.5-14.5); RED BLOOD CELL CT 4.44 /CUMM (4.20-5.40); WHITE BLOOD CELL COUNT 5.9 /CUMM (4.8-10.8)
--- NOTE | 2017-10-23 09:32 | Cons- Neurology ---
General Information and HPI Consulting Request Date of Consult: 10/23/17 Requested By: Bobo Colon MD Reason for Consult: TIA History of Present Illness: 72-year-old right-handed woman with a history of breast cancer in 2004, hypertension and hyperlipidemia who states she had a routine physical with her primary physician Dr. Cohn yesterday with no problems detected, states that later in the afternoon she was speaking to her neighbors while in her yard when she began to feel tingling in the left perioral region and left lower face. Simultaneously, her neighbor noticed new onset left facial drooping. A bit earlier in the day, she had transient numbness of left hand digits 2 and 3 without associated weakness. She initially declined medical assessment, but ultimately her neighbor drove her to the hospital and she was admitted. There has been no recurrence of facial droop since that time. She denies headache, visual changes, chest pain, palpitations, shortness of breath, gait difficulties, dizziness. Family history is notable for TIAs and her mother, feels cerebral hemorrhages in both her father and her paternal aunt, and a fatal aneurysmal subarachnoid hemorrhage in her daughter at the age of 51. Patient is BRCA-2 positive. Allergies/Medications Allergies: Coded Allergies: hydrocodone (From VICODIN) (Mild, ITCHING 10/22/17) azithromycin (RESP. DISTRESS 10/22/17) guaifenesin (RESP. DISTRESS 10/22/17) Home Med List: Calcium Carbonate/Vitamin D3 (Caltrate 600 + D Tablet) 600 MG-800 TABLET 1 TAB PO DAILY VITAMIN SUPPORT (Reported) Fish Oil/Borage/Flax/Om3,6,9#1 ([place] 3-6-9 1,200 MG Softgel) 1,200 MG CAPSULE 1 CAP PO DAILY VITAMIN SUPPORT (Reported) Fluticasone-Salmeterol (Advair 100-50 Diskus) 100 MCG-50 MCG/DOSE BLST.W.DEV 1 PUF INH BID ASTHMA (Reported) Hydrochlorothiazide 25 MG TABLET 1 TAB PO DAILY HIGH BLOOD PRESSURE (Reported ) Levothyroxine Sodium 50 MCG TABLET 1 TAB PO DAILY THYROID HEALTH (Reported) Losartan Potassium (Cozaar) 50 MG TABLET 1 TAB PO BID HIGH BLOOD PRESSURE ( Reported) Multiple Vitamin (Multivitamins) 1 EACH TABLET 1 TAB PO DAILY VITAMIN SUPPORT (Reported) Pravastatin Sodium (Pravachol) 40 MG TABLET 1 TAB PO DAILY HIGH CHOLESTROL ( Reported) Current Medications: Current Medications Sig/Rafita Start time Last Medication Dose Route Stop Time Status Admin Acetaminophen 650 MG Q6P PRN 10/23 0015 AC PO Aspirin 81 MG DAILY 10/23 0900 AC 10/23 PO 0800 Aspirin 0 .STK-MED ONE 10/22 1831 DC PO Aspirin 325 MG ONCE ONE 10/22 1815 DC 10/22 PO 10/22 1816 1911 Atorvastatin Calcium 40 MG 1700 10/23 0015 AC 10/23 PO 0040 Budesonide/ 2 PUF BID 10/23 0007 AC 10/23 Formoterol Fumarate INH 0801 Calcium/Vitamin D 1 TAB DAILY 10/23 0900 AC 10/23 PO 0800 Fish Oil 1,050 MG DAILY 10/23 0900 AC 10/23 PO 0800 Heparin Sodium 5,000 UNIT Q8 10/23 0600 AC 10/23 (Porcine) SC 0552 Hydrochlorothiazide 25 MG DAILY 10/23 0900 AC 10/23 PO 0801 Levothyroxine Sodium 0.05 MG DAILY 10/23 0900 DC PO Levothyroxine Sodium 0.05 MG 0700 10/23 0700 AC 10/23 PO 0557 Losartan Potassium 50 MG BID 10/23 0900 AC 10/23 PO 0800 Multivitamins 1 TAB DAILY 10/23 0900 AC 10/23 Therapeutic PO 0801 Potassium Chloride 40 MEQ ONCE ONE 10/23 0015 DC 10/23 PO 10/23 0016 0040 Review of Systems Review of Systems: REVIEW OF SYSTEMS: (-) = negative / normal blank = not discussed Neurologic: see HPI Eyes: (-) ENT: (-) Constitutional: (-) CV: (-) Respiratory: (-) /Renal: (-) Musculoskeletal: (-) Skin: (-) Psychiatric: (-) Heme: (-) GI: (-) Allergy/Immune: (-) Endocrine: (-) Other: (-) Past History Travel History Traveled to [place] past 21 day No Medical History Blood Transfusion Hx: No Neurological: NONE EENT: NONE Cardiovascular: hypertension, hyperlipidemia Respiratory: NONE Gastrointestinal: NONE Hepatic: NONE Renal: NONE Musculoskeletal: NONE Psychiatric: NONE Endocrine: NONE Blood Disorders: NONE Cancer(s): NONE (lumpect & xrt (+)BRCA2), breast 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 Surgical History Surgical History: non-contributory Psychosocial History Smoking Status: Never Smoked (exposure to secondhand smoke) Other Social History: Spouse has dementia Exam & Diagnostic Data Vital Signs and I&O Vital Signs Date Time Temp Pulse Resp B/P B/P Pulse O2 O2 Flow FiO2 Mean Ox Delivery Rate 10/23 0800 73 136/78 10/23 0701 98.1 73 18 122/86 97 Room Air 10/22 2339 98.3 62 18 158/78 98 Room Air 10/22 2310 97.3 65 16 132/68 94 Room Air 10/22 2211 97.6 67 16 138/63 94 Room Air 10/22 2106 98.4 74 18 155/73 97 Room Air Room Air 10/22 1944 98.6 70 18 175/78 96 Room Air Room Air 10/22 1919 70 18 203/81 96 Room Air Room Air 10/22 1809 98.5 75 18 178/76 97 Room Air Room Air 10/22 1653 98.4 76 18 174/75 98 Room Air Intake & Output 10/23 1600 10/23 0800 10/23 0000 Intake Total 200 Output Total Balance 200 Intake, Oral 200 Patient 135 lb Weight Weight Reported by Patient Measurement Method Physical Exam: PHYSICAL EXAMINATION: nl = normal NT or blank = not tested GENERAL Appearance: nl Head: nl Eyes: nl ENT: nl Neck: nl Carotids: nl Lungs: nl Heart: nl Extremities: nl Spine: nl NEUROLOGIC MENTAL STATUS Level of consciousness: nl Orientation: nl Attention / Concentration: nl Memory: nl Fund of Knowledge: nl Speech / Language: nl NEUROLOGIC CRANIAL NERVES I: Olfaction: NT II: Optic nerves: nl Visual gardner: nl III: Pupils: nl Levator palpebrae: nl III, IV, : Ocular alignment: nl Extraocular motility: nl Pursuits/ saccades: nl V: Facial sensation: nl Masseter/Pterygoids: nl VII: Facial Motor: nl VIII: Hearing (finger rub): nl IX, X: Uvula and palate: nl XI: SCM, Upper trap.: nl XII: Tongue: nl MOTOR / NEUROMUSCULAR Bulk: nl Tone: nl Strength: nl Rapid alternating movements: nl Fine motor movements: nl Abnormal / involuntary movements: none CEREBELLAR / COORDINATION: intact SENSATION: intact to light touch DTR's symmetrically trace to 1+ PLANTARS: flexor GAIT: nl Last 48 Hours of Lab Results: Laboratory Tests 10/23 10/22 0628 1741 Chemistry Sodium (137 - 145 mmol/L) 142 140 Potassium (3.5 - 5.1 mmol/L) 3.7 3.3 L Chloride (98 - 107 mmol/L) 106 100 Carbon Dioxide (22 - 30 mmol/L) 28 31 H Anion Gap (5 - 16) 8 9 BUN (7 - 17 mg/dL) 11 13 Creatinine (0.5 - 1.0 mg/dL) 0.7 0.7 Estimated GFR (>60 ml/min) > 60 > 60 BUN/Creatinine Ratio (7 - 25 %) 15.7 18.6 Glucose (65 - 99 mg/dL) 93 Calcium (8.4 - 10.2 mg/dL) 9.9 Magnesium (1.6 - 2.3 mg/dL) 2.1 Total Bilirubin (0.2 - 1.3 mg/dL) 0.6 AST (14 - 36 U/L) 25 ALT (9 - 52 U/L) 35 Alkaline Phosphatase (<127 U/L) 65 Troponin I (< 0.11 ng/ml) < 0.01 Total Protein (6.3 - 8.2 g/dL) 6.8 Albumin (3.5 - 5.0 g/dL) 4.2 Globulin (1.9 - 4.2 gm/dL) 2.6 Albumin/Globulin Ratio (1.1 - 2.2 %) 1.6 Triglycerides (<150 mg/dL) 138 Cholesterol (<200 MG/DL) 175 LDL Cholesterol, Calc (65 - 129 mg/dL) 73 HDL Cholesterol (40 - 60 mg/dL) 75 H Cholesterol/HDL Ratio (0.00 - 4.23 %) 2 Coagulation PT (9.4 - 12.5 SEC) 9.7 INR (0.90 - 1.19) 0.89 L APTT (25 - 37 SEC) 28 Hematology CBC w Diff NO MAN DIFF REQ NO MAN DIFF REQ WBC (4.8 - 10.8 /CUMM) 5.9 6.9 RBC (4.20 - 5.40 /CUMM) 4.44 4.45 Hgb (12.0 - 16.0 G/DL) 13.6 13.6 Hct (37 - 47 %) 40.3 40.3 MCV (81.0 - 99.0 FL) 90.7 90.7 MCH (27.0 - 31.0 PG) 30.8 30.7 MCHC (33.0 - 37.0 G/DL) 33.9 33.8 RDW (11.5 - 14.5 %) 14.2 14.6 H Plt Count (130 - 400 /CUMM) 257 261 MPV (7.4 - 10.4 FL) 8.5 7.8 Gran % (42.2 - 75.2 %) 56.6 54.9 Lymphocytes % (20.5 - 51.1 %) 30.6 32.1 Monocytes % (1.7 - 9.3 %) 10.6 H 10.4 H Eosinophils % (0 - 5 %) 1.8 2.1 Basophils % (0.0 - 2.0 %) 0.4 0.5 Absolute Granulocytes (1.4 - 6.5 /CUMM) 3.3 3.8 Absolute Lymphocytes (1.2 - 3.4 /CUMM) 1.8 2.2 Absolute Monocytes (0.10 - 0.60 /CUMM) 0.6 0.7 H Absolute Eosinophils (0.0 - 0.7 /CUMM) 0.1 0.1 Absolute Basophils (0.0 - 0.2 /CUMM) 0 0 Imaging/Other Studies: Head CT COMPARISON: None TECHNIQUE: Contiguous axial imaging was performed from the skull base to vertex without intravenous administration of contrast. FINDINGS: There is no intracranial hemorrhage, hydrocephalus, extra-axial surface collection, midline shift, or other herniation pattern. [place]anda[place]de to white matter differentiation is diffusely maintained without evidence of an evolved acute territorial infarct. The basilar cisterns are preserved. No significant soft tissue abnormality. No acute osseous abnormality. The paranasal sinuses and the mastoid air cells are well-aerated. IMPRESSION: No acute intracranial abnormality. Stroke protocol head CT results were discussed with Dr. Ferreira at 5:14 PM on 10/22/2017. DICTATED BY: Gopi Fontanez MD DATE/TIME DICTATED:10/22/171711 CTA head/NECK EXAM TYPE: CAT - CT HEAD ANGIOGRAM; CT NECK ANGIOGRAM CT ANGIOGRAM NECK WITH CONTRAST CT ANGIOGRAM BRAIN WITH CONTRAST CLINICAL INFORMATION: Left-sided facial droop and slurred speech that is now resolved. COMPARISON: Head CT performed earlier the same day. TECHNIQUE: Test bolus sequences followed by intravenous administration 95 mL of Optiray 350. Helical imaging was performed in the axial plane from the thoracic inlet to the skull vertex. Delayed postcontrast imaging of the head was also performed. The data was processed at the radiologic technologist mammogram workstation for generation of MIP sequences. Angled MIPs and volume rendered reformatted images were also generated at an offline 3D workstation. Stenoses are assessed in accordance with NASCET criteria unless otherwise indicated. FINDINGS: BRAIN: There is no intracranial hemorrhage, hydrocephalus, extra-axial surface collection, midline shift, or other herniation pattern. Landaverde to white matter differentiation is diffusely maintained without evidence of an evolved acute territorial infarct. The basilar cisterns are preserved. No significant soft tissue abnormality. No acute osseous abnormality. The paranasal sinuses and the mastoid air cells are well-aerated. CERVICAL SOFT TISSUES AND LUNG APICES: Unremarkable. NECK CTA: There is a classic 3 vessel configuration of the aortic arch. Proximal arch vessels are non-stenotic. The vertebral arteries are codominant. No significant ostial stenosis is visualized on either side. Both vertebral arteries are widely patent throughout their extracranial cervical course. Both common and internal carotid arteries are widely patent. There is mild beaded irregularity of the mid left cervical internal carotid artery segment suggesting underlying fibromuscular dysplasia. BRAIN CTA: There is normal opacification of major intracranial arteries. No focal flow-limiting stenosis nor discrete proximal large artery occlusion. A 1 mm vascular excrescence projecting inferiorly from the communicating segment of the left internal carotid artery on image 393 of series 2 may reflect a small infundibulum or aneurysm. Timing of the contrast bolus allows assessment of the major dural venous sinuses, which all opacify normally. IMPRESSION: - No acute arterial occlusions and no significant arterial stenoses within the head or neck. There is mild beaded irregularity of the mid left cervical internal carotid artery segment suggesting underlying fibromuscular dysplasia. - A 1 mm vascular excrescence projecting inferiorly from the communicating segment of the left internal carotid artery on image 393 of series 2 may reflect a small infundibulum or aneurysm. Findings discussed with Dr. Stout at 9:09 PM on 10/22/2017. DICTATED BY: Gopi Fontanez MD DATE/TIME DICTATED:10/22/172054 ACADEMIC PHYSICIAN:BLANCHE DATE/TIME TRANSCRIBED:10/22/172054 CONFIDENTIAL, DO NOT COPY WITHOUT APPROPRIATE AUTHORIZATION. <Electronically signed in Other Vendor System> SIGNED BY: Gopi Fontanez MD 10/22/172116 CAROTID US: FINDINGS: Right common carotid artery peak systolic velocity is 70 cm/s with maximal end-diastolic velocity of 13 cm/s. Right internal carotid artery peak systolic velocity ranges between 73 and 104 cm/s with maximal end-diastolic velocity of 38 cm/s. There is antegrade flow within the right vertebral artery. There is calcific atherosclerotic plaque at the right carotid bifurcation. Left common carotid artery peak systolic velocity is 112 cm/s with maximal end-diastolic velocity of 27 cm/s. Left internal carotid artery peak systolic velocity ranges between 53 and 97 cm/s with maximal end-diastolic velocity of 37 cm/s. There is antegrade flow within the left vertebral artery. No atherosclerotic plaque at the left carotid bifurcation. IMPRESSION: Mild atherosclerotic disease at the right carotid bifurcation with no significant (<50%) stenosis by sonographic criteria. The left carotid bifurcation is unremarkable. DICTATED BY: Gopi Fontanez MD DATE/TIME DICTATED:10/22/172018 ACADEMIC PHYSICIAN:BLANCHE DATE/TIME TRANSCRIBED:10/22/172018 CONFIDENTIAL, DO NOT COPY WITHOUT APPROPRIATE AUTHORIZATION. <Electronically signed in Other Vendor System> SIGNED BY: Gopi Fontanez MD 10/22/172024 Echocardiogram is pending Assessment/Plan Assessment: Right hemispheric TIA Stroke risk factors include hypertension, hyperlipidemia, exposure to secondhand smoke, family history of stroke Recommendations: Continue aspirin and high intensity statin Blood pressure control No anticoagulation and less telemetry shows paroxysmal atrial fibrillation or echocardiogram shows thrombus TIA/stroke education was provided, should be reinforced by the primary team, and written materials pertaining to stroke should be provided to the patient prior to discharge Copies To: Suki PRADHAN,[facility] Consult Acknowledgment - Thank you for your consult request.
[2017-10-23 11:46] VITALS: BP 128/72
--- NOTE | 2017-10-23 12:48 | ECHOCARDIOGRAM REPORT ---
DEBBIE MARSH Age: 72 : 1945 Gender: F Exam Date: 10/23/2017 09:43 Exam Location: 1 [address] Ht (in): 63 Wt (lb): 135 BSA: 1.66 BP: 136 / 78 Ordering Physician: Shane Kim MD Referring Physician: Shane Kim MD Technologist: Zaki Willis [facility] Room Number: 189-2 Indications: STROKE Rhythm: Sinus Technical Quality: Fair, Technically difficult study FINDINGS Left Ventricle Normal size left ventricle. No obvious regional wall motion abnormalities. Normal left ventricular ejection fraction estimated at 60-65%. Right Ventricle Right ventricle not well visualized, grossly normal. Right Atrium Normal right atrial size. Left Atrium Normal left atrial size. Mitral Valve Mitral valve thickened. Trace mitral regurgitation. Aortic Valve Structurally normal trileaflet aortic valve. No aortic stenosis. No aortic regurgitation. Tricuspid Valve No vegetations seen (suggest transthoracic echo if clinically indicated). Trace tricuspid regurgitation. Pulmonic Valve Pulmonic valve not well visualized, grossly normal. Pericardium No pericardial effusion. Great Vessels Normal size aortic root and proximal ascending aorta. CONCLUSIONS 1. This was a technically difficult examination. 2. The aortic valve is trileaflet and normal. 3. Mitral leaflet thickening is present with minimal mitral insufficiency. 4. There is no pericardial fluid present. 5. The left ventricular chamber size and systolic fucntion are normal with no resting wall motion abnormalities 6. Minimal tricuspid insufficiency is present with no evidence of pulmonary hypertension. 7. There are no embolic sources identified on this study. Jonnie Valdez M.D. (Electronically Signed) Final Date: 23 October 2017 12:47 MEASUREMENTS (Male / Female) Normal Values 2D ECHO LV Diastolic Diameter PLAX 4.0 cm 4.2 - 5.9 / 3.9 - 5.3 cm LV Systolic Diameter PLAX 2.5 cm 2.1 - 4.0 cm LV Fractional Shortening PLAX 37.5 % 25 - 46 % LV Ejection Fraction 2D Teich 68.1 % IVS Diastolic Thickness 1.1 cm LVPW Diastolic Thickness 1.0 cm LV Relative Wall Thickness 0.5 RV Internal Dim ED PLAX 3.2 cm 1.9 - 3.8 cm LVOT Diameter 1.7 cm Aortic Root Diameter 2.6 cm LA Systolic Diameter LX 3.2 cm 3.0 - 4.0 / 2.7 - 3.8 cm LA Volume 30.0 cm 18 - 58 / 22 - 52 cm Ascending Aorta Diameter 2.8 cm DOPPLER AV Peak Velocity 160.0 cm/s AV Peak Gradient 10.2 mmHg AV Mean Velocity 103.0 cm/s AV Mean Gradient 5.0 mmHg AV Velocity Time Integral 31.5 cm LVOT Peak Velocity 131.0 cm/s LVOT Peak Gradient 6.9 mmHg LVOT Mean Velocity 88.3 cm/s LVOT Mean Gradient 4.0 mmHg LVOT Velocity Time Integral 29.7 cm LVOT Stroke Volume 67.4 cm AV Area Cont Eq vti 2.1 cm AV Area Cont Eq pk 1.9 cm MV Peak Velocity 127.0 cm/s MV Peak Gradient 6.5 mmHg MV Mean Velocity 75.8 cm/s MV Mean Gradient 3.0 mmHg Mitral E Point Velocity 101.0 cm/s Mitral A Point Velocity 98.7 cm/s Mitral E to A Ratio 1.0 MV PHT Velocity 130.0 cm/s MV Deceleration Wallace 649.0 cm/s MV Pressure Half Time 60.1 ms MV Area PHT 3.7 cm MV Deceleration Time 158.0 ms PV Peak Velocity 138.0 cm/s PV Peak Gradient 7.6 mmHg PV Mean Velocity 94.4 cm/s PV Mean Gradient 4.0 mmHg PV Velocity Time Integral 27.8 cm LV E' Lateral Velocity 10.7 cm/s Mitral E to LV E' Lateral Ratio 9.4 LV E' Septal Velocity 7.7 cm/s Mitral E to LV E' Septal Ratio 13.1
[2017-10-23 14:29] VITALS: BP 122/70
[2017-10-23] MEDS ORDERED: ATORVASTATIN CA80 M1 PO (14:32)
[2017-10-23] MEDS ORDERED: ASPIRIN81 M4 PO (14:32)
--- NOTE | 2017-10-23 14:35 | Patient Discharge Instructions ---
Discharge Instructions General Discharge Information You were seen/treated for: TIA Diet Continue normal diet: Yes Recommended Diet: Regular Additional DIET Information: 1- please f/u with your PCP in 1 week of discharge Acute Coronary Syndrome Inclusion Criteria At DC or during hospital stay patient has or had the following: ACS DIAGNOSIS No Discharge Core Measures Meds if any: Prescribed or Continued at Discharge Meds if any: NOT Prescribed or Continued at Discharge Congestive Heart Failure Inclusion Criteria At DC or during hospital stay patient has or had the following: CHF DIAGNOSIS No Discharge Core Measures Meds if any: Prescribed or Continued at Discharge Meds if any: NOT Prescribed or Continued at Discharge Cerebrovascular accident Inclusion Criteria At DC or during hospital stay patient has or had the following: CVA/TIA Diagnosis Yes Discharge Core Measures Meds if any: Prescribed or Continued at Discharge Antithrombotic Yes Statin (required if LDL =>70) Yes Anticoagulant No Meds if any: NOT Prescribed or Continued at Discharge Venous thromboembolism Inclusion Criteria VTE Diagnosis No VTE Type NONE VTE Confirmed by (Test) NONE Discharge Core Measures - Per Current guidelines, there needs to be overlap - treatment for the first 5 days of Warfarin therapy. - If discharged on Warfarin prior to 5 days of - overlap therapy, the patient will need to be - assessed for post discharge needs including - *Post discharge parental anticoagulation - *Warfarin and/or parental anticoagulation education - *Follow up date to check INR post discharge At least 5 days overlap therapy as Inpatient No Meds if any: Prescribed or Continued at Discharge Note: Overlap Therapy is Warfarin and Anticoagulant Meds if any: NOT Prescribed or Continued at Discharge
== END 2017-10-23 15:10 ==
LOC: ERH 16:49 → ERHI 22:17 → 1NO 22:17 → ENRESERV 22:49 → 1NO 23:14 → ENPENDDIS 10-23 14:36 → 1NO 10-23 15:10
PROVIDERS: Internal Medicine Interventional Cardiology; Physician Assistant Medical
DX: G45.9 Transient cerebral ischemic attack, unspecified (principal); I10 Essential (primary) hypertension; E78.5 Hyperlipidemia, unspecified; J45.909 Unspecified asthma, uncomplicated; E03.9 Hypothyroidism, unspecified; Z85.3 Personal history of malignant neoplasm of breast; Z79.82 Long term (current) use of aspirin; E87.6 Hypokalemia
CPT/HCPCS: 6020; 36592; 82436; 93005; 93010; 93306; 96372; G0378; J1644; J3490